=== PATIENT | male | born 1950 | race Caucasian/White ===

== ENCOUNTER 2016-12-14 17:29 | Observation (INO) | payer MEDICARE, OTHER ==
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
--- NOTE | ~2016-12-14 | DS ---
Discharge Summary [address] [place]. [address] NAME: KIZZY JACKSON : 46 STATUS : DIS Pat PAT#: [id number] AGE: 66 ADM/REG DATE : 12/14/16 MR#: [id number] REPORT SERV DATE: 12/15/16 DICTATED BY: FRANKLIN DIAZ DATE: 12/15/16 REPORT STATUS : Draft TRANSCRIBED BY: MODL DATE: 12/15/16 ADMISSION DATE: 12/14/2016 DISCHARGE DATE: 12/15/2016 DISCHARGE DIAGNOSES: 1. Dehydration. 2. Acute kidney injury. 3. Orthostatic near syncope. 4. Hypokalemia. 5. Parkinson disease. 6. Left hip pain. CONSULTANTS: None. PROCEDURES: None. HOSPITAL COURSE: This is a 66-year-old gentleman who was admitted to the hospital with near syncopal episodes after having been working outside the past few days. For details, please refer to the excellent H and P dictated by Dr. Carrillo. In summary, the patient was admitted for IV fluid hydration. With aggressive IV fluid hydration, the patient's acute kidney injury resolved and the patient states orthostatic vitals became stable. By the second day of the hospital stay, the patient was feeling much better. The patient had complaints of left hip pain for which x-ray was obtained and it was benign without any acute bony injuries. Otherwise, hypokalemia was simply replaced. The patient is now being discharged home in stable condition to continue outpatient followup. DISPOSITION: Home. DISCHARGE MEDICATIONS: No changes. FOLLOWUP: Please follow up with PCP in the next one to two weeks. A total of 25 minutes spent in coordinating this patient's discharge today. DICTATED BY: Franklin Diaz MD [facility] [place] Franklin Diaz MD / [id number] Discharge Summary [address] [place]. [address] NAME: KIZZY JACKSON : 46 STATUS : DIS Pat PAT#: [id number] AGE: 66 ADM/REG DATE : 12/14/16 MR#: [id number] REPORT SERV DATE: 12/15/16 DICTATED BY: FRANKLIN DIAZ DATE: 12/15/16 REPORT STATUS : Draft TRANSCRIBED BY: BLAKE DATE: 12/15/16 CC: MD Izaiah Taylor M.D.
[2016-12-14 15:50] LABS: BASOPHILS 0.2 %; BASOPHILS ABSOLUTE 0.02 10/3/uL (0.0-0.16); EOSINOPHILS 2.2 %; EOSINOPHILS ABSOLUTE 0.18 10/3/uL (0.0-0.53); ER CBC TAT 0 Hrs 09 Mins; HEMATOCRIT 41.6 % (40.0-51.0); HEMOGLOBIN 13.6 g/dL (13.6-17.8); IMMATURE GRANULOCYTES 0.1 %; IMMATURE GRANULOCYTES ABSOLUTE 0.01 10/3/uL (0.0-0.11); LYMPHOCYTES 26.6 %; LYMPHOCYTES ABSOLUTE 2.15 10/3/uL (0.67-4.30); MEAN CORPUS HGB CONC 32.7 g/dL (32.0-36.0); MEAN CORPUSCULAR HEMOGLOB 29.1 pg (26.0-34.0); MEAN CORPUSCULAR VOLUME 89.1 fL (80-100); MEAN PLATELET VOLUME 9.6 fL (9.2-13.0); MONOCYTES ABSOLUTE 0.57 10/3/uL (0.21-1.20); NEUTROPHILS 63.9 %; NEUTROPHILS ABSOLUTE 5.16 10/3/uL (2.02-8.40); PLATELET COUNT 196 10/3/uL (150-400); RBC DISTRIBUTION WIDTH 13.7 % (12.0-16.0); RED CELL COUNT 4.67 10/6/uL (4.7-6.1); WHITE BLOOD CELLS 8.1 10/3/uL (4.5-10.5)
[2016-12-14 15:51] LABS: MANUAL DIFF NO %
[2016-12-14 15:59] LABS: INTERNATIONAL NORMAL RATI 1.1 UNITS (-); PARTIAL THROMBO TIME 28.8 SEC (22.5-37.2); PROTIME (NOT ORD) 13.6 SEC (12.0-14.5)
[2016-12-14 16:07] LABS: A/G RATIO 1.3 (0.7-1.9); ALKALINE PHOSPHATASE 108 U/L (45-117); BUN (BLOOD UREA NITROGEN) 26 MG/DL (6-23); CALCIUM, SERUM 8.8 MG/DL (8.5-10.4); CHLORIDE, SERUM 102 MMOL/L (96-112); CO2 (CARBON DIOXIDE) 27 MMOL/L (24-34); CREATININE 1.93 MG/DL (0.70-1.30); GFR AFRICAN AMERICAN 40 ML/MIN (>=60); GFR NON AFRICAN AMERICAN 35 ML/MIN (>=60); GLOBULIN 3.2 G/DL (2.5-4.1); GLUCOSE, SERUM 84 MG/DL (60-99); POTASSIUM, SERUM 3.2 MMOL/L (3.5-5.3); SGOT(AST) 17 U/L (5-40); SGPT(ALT) 20 U/L (5-65); SODIUM, SERUM 139 MMOL/L (135-148); TOTAL BILIRUBIN 0.7 MG/DL (0-1.2); TOTAL PROTEIN 7.2 G/DL (6.0-8.5); TROPONIN I <0.02 NG/ML (<0.05)
[2016-12-14 17:14] LABS: CPK 267 U/L (0-200)
[~2016-12-14 17:29] MED LIST: ACCUNEB INH; ARICEPT10 MG PO; ASAB PO; BEN25 PO; BENTYL10 PO; CELEBREX50 MG PO; CIP5 PO; COMBIVENT INH; COMBIVENT INHAL15 GM INH; DEPAKOT500 PO; DEXADRINE PO; FLEX PO; HUMI PO; KLONO1 PO; KLONO2 PO; LAMICTAL XR100 MG PO; LAMICTAL25 PO; LEVAQUIN750 MG PO; LIOR10 PO; LOP25 PO; MUCINEX600 MG PO; NAMENDA10 MG PO; NAMENDA5 PO; PERCOCET1 TA2 PO; PR25 PO; PROTONIX PO; REQUIP XL4 MG PO; REQUIP4 MG PO; SEROQUEL XR400 MG PO; SEROQUEL300 MG PO; SEROQUEL400 MG PO; SIN10 PO; SIN25 PO; SINGULAIR1 PO; SPIRIVA INH; SPIRIVA RESPIMAT INH; STERAPRED DS10 MG; SYMBICORT 160/41 INH INH; SYMBICORT 80/4.1 INH INH; SYN.025B PO; SYN.05 PO; ZOCOR20 PO; ZOFRAN4 PO; [UNRECOGNIZED DRUG - OTHER] OPH
[2016-12-14 18:31] LABS: WBC (NOT ORDERED) (RFLEX) 0 (0-5)
[2016-12-14 18:47] LABS: ASCORBIC ACID (UR NOT ORDER) NEG (NEG); BILIRUBIN, URINE NEGATIVE (NEG); ER URINALYSIS TAT 0 Hrs 18 Mins; KETONE, URINE NEGATIVE (NEG); LEUKOCYTE ESTERASE(NOT OR NEG (NEG); NITRITE (URINE) NEG (NEG)
[2016-12-14] MEDS ORDERED: KLONO2 PO (21:22)
[2016-12-14] MEDS ORDERED: KLONO1 PO (21:23)
[2016-12-14] MEDS ORDERED: REQUIP4 MG PO (21:24)
[2016-12-14] MEDS ORDERED: NAMENDA10 MG PO (21:24)
[2016-12-14] MEDS ORDERED: BEN25 PO (21:24)
[2016-12-14] MEDS ORDERED: SEROQUEL XR400 MG PO (21:25)
[2016-12-14] MEDS ORDERED: PCET PO (21:25)
[2016-12-14] MEDS ORDERED: EFFEXOR PO (21:25)
[2016-12-14] MEDS ORDERED: KLOR-CON M2020 MEQ PO (21:26)
[2016-12-14] MEDS ORDERED: SIN25 PO (21:26)
[2016-12-14] MEDS ORDERED: DEXEDRINE15 MG PO (21:27)
[2016-12-14] MEDS ORDERED: COMBIVENT RESPIM4 GM PO (21:28)
[2016-12-14] MEDS ORDERED: LIOR10 PO (21:28)
[2016-12-14] MEDS ORDERED: ARICEPT23 MG PO (21:28)
[2016-12-14] MEDS ORDERED: SYN.05 PO (21:28)
[2016-12-14] MEDS ORDERED: LAMICTAL PO (21:28)
[2016-12-14] MEDS ORDERED: L40 PO ×2 (21:29)
[2016-12-15 05:22] LABS: BASOPHILS 0.3 %; BASOPHILS ABSOLUTE 0.02 10/3/uL (0.0-0.16); EOSINOPHILS 3.9 %; EOSINOPHILS ABSOLUTE 0.23 10/3/uL (0.0-0.53); HEMATOCRIT 37.7 % (40.0-51.0); LYMPHOCYTES 38.6 %; LYMPHOCYTES ABSOLUTE 2.29 10/3/uL (0.67-4.30); MEAN CORPUS HGB CONC 31.8 g/dL (32.0-36.0); MEAN CORPUSCULAR HEMOGLOB 28.4 pg (26.0-34.0); MEAN CORPUSCULAR VOLUME 89.1 fL (80-100); MEAN PLATELET VOLUME 9.9 fL (9.2-13.0); MONOCYTES 7.3 %; MONOCYTES ABSOLUTE 0.43 10/3/uL (0.21-1.20); NEUTROPHILS 49.9 %; NEUTROPHILS ABSOLUTE 2.96 10/3/uL (2.02-8.40); PLATELET COUNT 183 10/3/uL (150-400); RBC DISTRIBUTION WIDTH 13.8 % (12.0-16.0); RED CELL COUNT 4.23 10/6/uL (4.7-6.1); WHITE BLOOD CELLS 5.9 10/3/uL (4.5-10.5)
[2016-12-15 05:23] LABS: MANUAL DIFF NO %
[2016-12-15 05:45] LABS: CALCIUM, SERUM 8.4 MG/DL (8.5-10.4); CHLORIDE, SERUM 106 MMOL/L (96-112); CO2 (CARBON DIOXIDE) 30 MMOL/L (24-34); POTASSIUM, SERUM 3.4 MMOL/L (3.5-5.3); SODIUM, SERUM 143 MMOL/L (135-148); TROPONIN I <0.02 NG/ML (<0.05); ULTRASENSITIVE TSH 0.628 MCIU/ML (0.358-3.740)
[2016-12-15 05:47] LABS: BUN (BLOOD UREA NITROGEN) 20 MG/DL (6-23); CK-MB 2.5 NG/ML; CPK 200 U/L (0-200); CREATININE 1.21 MG/DL (0.70-1.30); GFR AFRICAN AMERICAN 71 ML/MIN (>=60); GFR NON AFRICAN AMERICAN 61 ML/MIN (>=60); GLUCOSE, SERUM 102 MG/DL (60-99)
[2017-02-20] MEDS ORDERED: SYSTANE OPH (14:58)
[2017-02-20] MEDS ORDERED: ASAB PO (14:58)
[2017-02-20] MEDS ORDERED: ADDERALL XR15 MG PO (14:59)
[2017-02-20] MEDS ORDERED: PCET PO (15:00)
[2017-02-20] MEDS ORDERED: L40 PO (15:01)
[2017-02-20] MEDS ORDERED: Z-PAK PO (15:02)
[2017-02-20] MEDS ORDERED: KLONO1 PO (15:03)
[2017-02-20] MEDS ORDERED: LIOR10 PO (15:04)
[2017-02-20] MEDS ORDERED: SEROQUEL XR400 MG PO (15:04)
[2017-02-20] MEDS ORDERED: PR12.5 PO (15:05)
[2017-02-20] MEDS ORDERED: LEVOTHYROXIN50 MCG PO (15:06)
[2017-02-20] MEDS ORDERED: KLOR-CON M2020 MEQ PO (15:07)
[2017-02-20] MEDS ORDERED: REQUIP4 MG PO (15:07)
== END 2016-12-15 14:53 | disposition home or self-care (01) ==
LOC: ER 17:29 → 6NO 22:10
PROVIDERS: Emergency Medicine; Hospitalist
DX: N17.9 Acute kidney failure, unspecified (principal); E86.0 Dehydration; I95.1 Orthostatic hypotension; E87.6 Hypokalemia; G20 Parkinson's disease; R63.0 Anorexia; K21.9 Gastro-esophageal reflux disease without esophagitis; J45.909 Unspecified asthma, uncomplicated; J44.9 Chronic obstructive pulmonary disease, unspecified; E03.9 Hypothyroidism, unspecified; F32.9 Major depressive disorder, single episode, unspecified; F41.9 Anxiety disorder, unspecified; Z88.0 Allergy status to penicillin; Z88.1 Allergy status to other antibiotic agents; Z88.2 Allergy status to sulfonamides; Z96.652 Presence of left artificial knee joint; Z87.891 Personal history of nicotine dependence; Z82.49 Family history of ischemic heart disease and other diseases of the circulatory system; Z84.1 Family history of disorders of kidney and ureter; Z82.3 Family history of stroke; Z80.52 Family history of malignant neoplasm of bladder; Z79.899 Other long term (current) drug therapy; Z98.890 Other specified postprocedural states
CPT/HCPCS: 70450; 71010; 73502-LT; 80048; 80053; 81001; 82550; 82553; 84443; 84484; 85025; 85610; 85730; 93005; 96365; 96372; 96375; 99285; A9270-GY; G0378; J2405